=== PATIENT | male | born 1950 | race Caucasian/White ===

== ENCOUNTER 2025-08-16 05:38 | Day surgery (SDC) | payer MEDICARE, OTHER ==
[~2025-08-16] VITALS: Ht 177.8 cm; Wt 109.0 kg
[2025-08-16] VITALS (11 sets, daily range): BP systolic 119–170; BP diastolic 54–81
[~2025-08-16 05:38] MED LIST: AZULFIDINE500 MG PO; BYSTOLIC10 MG PO; CELEBREX200 MG PO; CENTRUM SILVER1 EAC9 PO; DOXAZOSIN MESYLA8 MG PO; FENOFIBRATE145 MG PO; FLOMAX0.4 MG PO; LACTATED RINGER'S 1,000 ML IV SCH; OLMESARTAN-HCT1 EAC1 PO; PRAVASTATIN SOD40 MG PO; TRIAMCINOLONE A15 G4 TOP; TURMERIC500 M3 PO; TYLENOL325 MG PO; VERAPAMIL ER240 M1 PO; VITAMIN B COMP1 EACH PO; VITAMIN D310 MC4 PO
[2025-08-16] MEDS ORDERED: LIDOCAINE HCL 2% 5 ML SDV ONE (06:21)
[2025-08-16] MEDS ORDERED: BUPIVACAINE 0.75% IN DEXTROSE 2 ML AMP ONE (06:22)
[2025-08-16 06:30] LABS: BASOPHILS 0.6 % (0.2-1.2); EOSINOPHILS 2.7 % (0.8-7.0); LYMPHOCYTES 28.5 % (21.8-53.1); MCH 33.2 PG (25.7-32.2); MCHC 34.9 g/dL (32.3-36.5); MCV 95.0 fL (79.0-92.2); MONOCYTES 11.1 % (5.3-12.2); NEUTROPHILS 56.9 % (34.0-67.9); RBC 3.98 M/uL (4.63-6.08)
[2025-08-16] MEDS ORDERED: SEVOFLURANE 250 ML BTL ONE (06:33)
[2025-08-16] MEDS ORDERED: fentaNYL citrate 100 MCG/2 ML VIAL ONE (06:54)
[2025-08-16] MEDS ORDERED: TRANEXAMIC ACID IN NACL,ISO-OS 1,000 MG/100 ML PIGGYBACK IV SCH ×2 (07:00→11:44)
[2025-08-16] MEDS ORDERED: PANTOPRAZOLE SODIUM 40 MG TABEC PO SCH (07:00)
[2025-08-16] MEDS ORDERED: LIDOCAINE HCL 1% 5 ML SDV INJ ONE (07:00)
[2025-08-16] MEDS ORDERED: IBLOOD GLUCOSE TEST STRIP 1 EA TEST VI PRN ×2 (07:00→08:15)
[2025-08-16] MEDS ORDERED: OXYCODONE HCL 5 MG TAB PO SCH (07:00)
[2025-08-16] MEDS ORDERED: INTRA-ARTICULAR ANALGESIC INJECTION XX SCH (07:00)
[2025-08-16] MEDS ORDERED: CEFAZOLIN SODIUM 2 GM in SODIUM CHLORIDE 0.9% 100 ML IV SCH ×2 (07:00→15:00)
[2025-08-16] MEDS ORDERED: GABAPENTIN 600 MG TAB PO SCH (07:00)
[2025-08-16] MEDS ORDERED: ACETAMINOPHEN 1,000 MG/100 ML VIAL ONE (07:22)
[2025-08-16] MEDS ORDERED: PHENYLEPHRINE HCL IN 0.9% NACL 1 MG/10 ML SYR ONE ×2 (07:50→08:33)
[2025-08-16] MEDS ORDERED: HYDROmorphone HCL 1 MG/ML SYR IV PRN (08:15)
[2025-08-16] MEDS ORDERED: NALOXONE HCL 0.4 MG SYR IV PRN (08:15)
[2025-08-16] MEDS ORDERED: fentaNYL citrate 50 MCG/ML SDV IV PRN (08:15)
[2025-08-16] MEDS ORDERED: OXYCODONE HCL 5 MG TAB PO PRN (08:45)
[2025-08-16] MEDS ORDERED: KETOROLAC TROMETHAMINE 30 MG/ML VIAL IV PRN (08:45)
[2025-08-16] MEDS ORDERED: OXYCODONE HCL5 M1 PO (08:53)
[2025-08-16] MEDS ORDERED: CEFUROXIME250 MG PO (08:53)
[2025-08-16] MEDS ORDERED: XARELTO10 MG PO (08:53)
[2025-08-16] MEDS ORDERED: SENNA LAX8.6 MG PO (08:54)
[2025-08-16] MEDS ORDERED: GABAPENTIN300 MG PO (08:54)
[2025-08-16] MEDS ORDERED: TRANEXAMIC ACID 650 MG TABLET PO SCH (09:00)
--- NOTE | 2025-08-16 09:02 | NUR ---
08/16/25 0902 Luz Maria Trejo 0856: VA ATTIVES TO PACU AWAK, BUT DROWSY. REPROT RECEIVED FROM DIRECTOR OF COMMUNICATIONS AND BELT NOTCHER. RUY 0858: IMAGMYRANDAG CALLED.
--- NOTE | 2025-08-16 09:37 | NUR ---
PT ARRIVES TO FROM PACU VIA STRETCHER. PT IS A&O AND ASKING APPROPRIATE QUESTIONS AT THIS TIME. PT ON RA W/O2 >90%, RESPIRATIONS EVEN AND UNLABORED, NO SIGNS OF DISTRESS. REPORT RECEIVED FROM KETAN CARRILLO, DRESSINGS VISUALIZED. CRYO CUFF, BIMAL HOSE, HEEL PROTECTORS, FOOT PUMPS IN PLACE. PT ABLE TO WIGGLE LFT FOOT AT THIS TIME, UNABLE TO MOVE RIGHT. ICE WATER AND APPLESAUCE PROVIDED. PT REPORTS NO FURTHER NEEDS OR QUESTIONS AT THIS TIME. CALL LIGHT WITHIN REACH. PT AT BEDSIDE. WARM BLANKETS PROVIDED.
--- NOTE | 2025-08-16 10:49 | NUR ---
IN PT ROOM FOR ASSESSMENT AND VS. PT CONTINUES TO REPORT NO PAIN OR NAUSEA. PT RESTING W/EYES CLOSED, SLIGHT AUDIBLE SNORE, O2 >90% VIA RA, RESPIRATIONS EVEN AND UNLABORED, NO SIGNS OF DISTRESS. PT REMAINS AT BEDSIDE. NO ACUTE CHANGES FROM PREVIOUS SURGICAL SITE ASSESSMENT. PT ABLE TO SLIGHTLY MOVE RT FOOT MORE. CALL LIGHT WITHIN REACH. PT AND PT STATE NO FURTHER NEEDS OR QUESTIONS AT THIS TIME.
--- NOTE | 2025-08-16 11:50 | NUR ---
IN PT ROOM FOR VS AND ASSESSMENT. PT RESTING W/EYES CLOSED, AWAKENS EASILY W/VERBAL STIMULI. PT REPORTS NO PAIN OR NAUSEA AT THIS TIME. RESPIRATIONS EVEN AND UNLABORED, NO SIGNS OF DISTRESS. PT >90% VIA RA WHEN RESTING, W/SLIGHT AUDIBLE SNORE. NO ACUTE CHANGES FROM PREVIOUS SURGICAL SITE ASSESSMENT. PT ABLE TO MOVE BOTH FEET W/OUT DIFFICULTY AND SENSATION PRESENT TO TOES. SLIGHT NUMBNESS REMAINS TO GROIN REGION AND TO RT FOOT PER PT. PT ENCOURAGED TO PERFORM FOOT AND GLUTE EXERCISES, CORRECT DEMONSTRATION, PT STATES VERBAL UNDERSTANDING. PT NOT PRESENT AT BEDSIDE AT THIS TIME. CALL LIGHT WITHIN REACH. LUNCH ORDER TAKEN, PT STATES NOT HUNGRY AT THIS TIME. PT STATES NO FURTHER NEEDS OR QUESTIONS AT THIS TIME.
--- NOTE | 2025-08-16 12:05 | NUR ---
IN PT ROOM D/T PT REPORTING NAUSEA POST TXA ADMIN. PT STATES REMAINS SHAKEY AND COLD, TEMP WNL. WARM BLANKETS AND MARIA INES HUGGER IN PLACE. VO FOR NAUSEA MED RECEIVED BY BOB PRICE, GIVEN (SEE EMAR). PT STATES NAUSEA SUBSIDING. PT STATES IN A FEW MINUTES WOULD LIKE TO SIT UP AT BEDSIDE BECAUSE HE HAS CHRONIC BACK PAIN AND IT IS BECOMING PAINFUL.
--- NOTE | 2025-08-16 12:30 | NUR ---
PT SITS AT EDGE OF BED, STRENGTH INTACT. PT REPORTS SLIGHT PAIN INCREASE W/MOVEMENT TO SITTING POSITION. PT STATES SITTING ALLEVIATES PAIN. PT SPINAL FULLY RESOLVED AND CAN FEEL SENSATION OF FEET TOUCHING FLOOR. PT RETURNS BACK TO SUPINE POSITION AFTER 5 MINUTES OF SITTING AT BEDSIDE. PT STATES HE WOULD LIKE TO LAY SUPINE FOR A LITTLE BIT. PT BECOMES CHILLED AND WARM BLANKETS/MARIA INES HUGGER PROVIDED. CALL LIGHT WITHIN REACH.
--- NOTE | 2025-08-16 13:20 | NUR ---
IN PT ROOM FOR PAIN AND NAUSEA ASSESSMENT. PT TOLERATING SMALL BITES OF TURKEY AND CHEESE WITHOUT DIFFICULTY. PT HAS ONLY CONSUMENED HALF A SLICE OF TURKEY, HALF A SLICE OF CHEESE, AND A SALTINE CRACKER. PT ENCOURAGED TO CONSUME ORALS, PT STATES VERBAL UNDERSTANDING. PT STATES NO URGE TO URINE VOID AT THIS TIME. PT REMAINS AT BEDSIDE. PT SITTING UP IN BED AND SHAKING HAS REDUCED. CALL LIGHT WITHIN REACH.
--- NOTE | 2025-08-16 13:30 | NUR ---
FARIDEH Lares/PHYSICAL THERAPY IN ROOM AT THIS TIME.
--- NOTE | 2025-08-16 14:10 | NUR ---
PT BACK TO ROOM AND LAYING IN BED. PER PHYSICAL THERAPY, PT REPORTS PT EXPERIENCING SOME DIZZINESS DURING SESSION, BUT GAIT REMAINS STEADY. PT HAS PASSED PHYSICAL THERAPY. PT ENCOURAGED TO EAT ORALS D/T LIMITED INTAKE TODAY OF FOOD. PT ATTEMPTING TO EAT SMALL BITES OF TURKEY AND CHEESE FROM UNFINISHED LUNCH. PT WAS UNABLE TO URINATE DURING PHYSICAL THERAPY AND STATES NUMBNESS REMAINS IN GROIN REGION. THIS RN TO BLADDER SCAN PT WHEN PT DONE EATING, PT AND PT AGREEABLE TO PLAN OF CARE AT THIS TIME. CALL LIGHT WITHIN REACH.
--- NOTE | 2025-08-16 14:40 | NUR ---
PT RESTING W/EYES CLOSED AND AUDIBLE SNORE. PT AWAKENS TO VERBAL STIMULI FOR ASSESSMENT AND VS. NO ACUTE CHANGES TO PREVIOUS ASSESSMENT. PT STATES HE IS STILL UNABLE TO FEEL GROIN REGION AND STATES NO URGE TO URINE VOID. BLADDER SCAN VOLUME BETWEEN 600-700. PT REPORTS NO PAIN W/PALPATION AND BLADDER IS NOT PALPABLE AT THIS TIME. PT REMAINS AT BEDSIDE. CALL LIGHT WITHIN REACH. PT EASILY GOES BACK TO SLEEP, EYES CLOSED, RESPIRATIONS EVEN AND UNLABORED.
[2025-08-16] MEDS ORDERED: GABAPENTIN 300 MG CAP PO SCH (15:00)
--- NOTE | 2025-08-16 15:00 | NUR ---
PT TO MS RM112 VIA STRETCHER BY THIS RN. PT SLIDES TO BED W/NO PAIN OR DIFFICULTY REPORTED. DRESSING VISUALIZED BY JAMAR CARRILLO, REMAINS C/D/I. VS TAKEN. CRYO CUFF, BIMAL HOSE, HEEL PROTECTORS, FOOT PUMPS IN PLACE. PT FREQUENTLY RESTING W/EYES CLOSED, RESPIRATIONS EVEN AND UNLABORED. PT EASILY AWAKENS W/VERBAL STIMULI. REPORT PROVIDED TO JAMAR CARRILLO W/NO FAMILY PRESENT AT BEDSIDE. ALL BELONGINGS IN PT POSSESSION. PT AND RN STATE NO FURTHER QUESTIONS OR NEEDS AT THIS TIME. CALL LIGHT WITHIN REACH. BED IN LOWEST POSITION. DINNER ARRIVED AND PT ENCOURAGED TO EAT D/T LACK OF FOOD INTAKE TODAY, PT STATES VERBAL UNDERSTANDING.
--- NOTE | 2025-08-16 15:10 | NUR ---
CONRADO PADILLA UPDATED ON PT INABILITY TO VOID AND BS VOLUME BETWEEN 600-700 ML. VO RECEIVED FOR 0.8 MG OF FLOMAX AND STRAIGHT CATH. PT TOLERATES STRAIGHT CATH W/OUT REPORTED PAIN. THIS RN MAINTAINS STERILITY. SMALL AMOUNT OF BLEEDING UPON INTO BLADDER, AND REMOVAL OF CATHETER FROM BLADDER. PT REMAINS REPORTING NO PAIN AT THIS TIME. 600 ML OF URINE DRAINED, MURRAY CARE PERFORMED W/BABY WIPES. PT BACK IN ROOM, CALL LIGHT WITHIN REACH.
[2025-08-16] MEDS ORDERED: LIDOCAINE 2% VISCOUS 6 ML SYR TOP ONE (15:15)
[2025-08-16] MEDS ORDERED: TAMSULOSIN HCL 0.4 MG CAP PO ONE (15:15)
--- NOTE | 2025-08-16 15:42 | NUR ---
PT AND PT STATE CONCERNS OF PT DRIVING HOME IN DARK AND NEEDS TO BE ON ROAD BY 1630. VO FROM CONRADO PADILLA FOR EXTENDED RECOVERY ON MS, PT AND PT UPDATED AND AGREEABLE TO PLAN OF CARE. CHICKEN BROTH PROVIDED AT PT REQUEST. ASSORTER LAUNDRY CALLED FOR MS ROOM 112. ADMISSION ORDERS PLACED.
--- NOTE | 2025-08-16 16:50 | NUR ---
Pt arrived to room via PACU stretcher, transported here by SQL APPLICATION DEVELOPERLORENA Lopez. Pt is A&O, able to scoot transfer from stretcher to bed. Cryo cuff applied, Denis hose on, foot pumps on, heel rolls under heels. Dressing to left hip is CDI, 2 RN skin assessment done with LORENA Lopez. IV site is patent, good blood return, flushes well with 10ml NS, locked. Dinner tray at bedside. Pt denies needs at this time. White board updated. Pt oriented to room and call light. Assessment completed.
--- NOTE | 2025-08-16 19:15 | NUR ---
REPORT RECEIVED FROM JAMAR CARRILLO. pt RESTING IN THE BED. pt DESATTING DOWN TO 85-87% ON RA. THIS RN LACED pt ON 1LNC FOR THE NIGHT. pt DENIES ANY OTHER NEEDS AT THIS TIME. CALL LIGHT WITHIN REACH.
[2025-08-16] MEDS ORDERED: SENNOSIDES 1 TAB PO SCH (21:00)
--- NOTE | 2025-08-16 21:45 | NUR ---
ASSESSMENT AND VITAL SIGNS DONE. pt SATTING AT 95% ON 1L. DREESSING ON LEFT HIP IS CDI. CRYO CUFF FILLED WITH ICE. SCD'S ON. BIMAL HOSE ON. pt ENCOURAGED TO PEE AND GIVEN URINAL. pt DENIES ANY OTHER NEEDS AT THIS TIME. CALL LIGHT WITHIN REACH.
--- NOTE | 2025-08-16 23:55 | NUR ---
pt IV ABX INFUSING PER ORDER AND FINISHED. IV ASSESSED, WNL. pt USED URINAL. pt DENIES ANY OTHER NEEDS AT THIS TIME. CALL LIGHT WITHIN REACH.
[2025-08-17 01:31] VITALS: BP 165/71
--- NOTE | 2025-08-17 02:01 | NUR ---
THIS RN IN TO CHECK ON pt. pt C/O 05/23 PAIN. PRN PAIN MEDS ADMINISTERED. DRESSING ASSESSED, WNL. pt DENIES ANY OTHER NEEDS AT THIS TIME. CALL LIGHT WITHIN REACH. CRYO CUFF FILLED WITH ICE. SCD'S ON. VITAL SIGNS AND I&O'S DONE. BIMAL HOSE ON. pt DENIES ANY OTHER NEEDS AT THIS TIME. CALL LIGHT WITHIN REACH.
--- NOTE | 2025-08-17 03:32 | NUR ---
pt RESTING IN THE BED WITH EYES CLOSED. RR EVEN AND UNLABORED. CALL LIGHT WITHIN REACH.
[2025-08-17 05:51] VITALS: BP 159/87
--- NOTE | 2025-08-17 06:13 | NUR ---
VITAL SIGNS DONE. pt C/O 05/23 PAIN. PRN PAIN MEDS ADMINISTERED. CRYO CUFF REFRESHED. SCD'S ON. BIMAL HOSE ON. pt DENIES ANY OTHER NEEDS AT THIS TIME. CALL LIGHT WITHIN REACH.
--- NOTE | 2025-08-17 07:02 | OR ---
[facility] [address], [place] [address] Signed DATE OF OPERATION: 08/16/2025 SURGEON: Oneyda Bauman MD PREOPERATIVE DIAGNOSIS: Left hip degenerative joint disease. POSTOPERATIVE DIAGNOSIS: Left hip degenerative joint disease. PROCEDURE PERFORMED: Left total hip arthroplasty with Min. VOCATIONAL CASE MANAGER: Lianet Stewart PA-C. ANESTHESIA: Spinal. BLOOD LOSS: 163 mL. IMPLANTS: [place] Insignia size 8 56 mm cup with two 6.5 screws and a -5 head. BRIEF HISTORY: Thomas is a 74-year-old gentleman with progressive worsening of osteoarthritis in the left hip. He had undergone right total hip arthroplasty in the past. Risks and benefits of operative treatment were discussed with him and he elected to proceed. Once consent was obtained, he was taken to the operating room. After adequate anesthesia, he was placed on the operating table in the left lateral decubitus position. All downside pressure points were well padded. Axillary roll was placed. The leg was then prepped and draped in a standard sterile fashion from the ribcage to the toes. The two stab incisions were made over the iliac crest three fingerbreadths posterior to the ASIS and two Schanz screws were placed along with the computer navigation array. The hip was approached through standard anterolateral incision. This was carried through skin and subcutaneous tissue and directly down onto the IT band. The IT band was split longitudinally. The gluteus medius was noted to be torn from the trochanter over its anterior 3rd already. This was tagged and marked. The vastus lateralis was then elevated from the tip of the trochanter distally along the anterior margin of the femur around to the level of the Electronically Signed By: ONEYDA BAUMAN MD 08/17/25 0702 PATIENT NAME: THOMAS ROJAS OPERATIVE REPORT DATE OF : 52 REPORT #: [id number] PHYSICIAN: ONEYDA BAUMAN MD PCP: KATI GUO MD REPORT IS CONFIDENTIAL AND NOT TO BE RELEASED WITHOUT AUTHORIZATION [facility] [address], [place] [address] Signed lesser trochanter. The capsule and minimus were split all the way to the acetabular rim and peeled off the anterior neck. The leg was then registered with the computer. The hip was dislocated. Femoral neck cut made 8 mm above the lesser trochanter. The femoral head was passed off the table. The periacetabular soft tissue was removed and the acetabulum was registered with the computer. Once this was accomplished, we brought the robot in and we were unable to get the robot to register within the 0.5 mm. Multiple attempts were made at this and it was decided to abandon that. The acetabulum was then reamed with a 54, then a 56 reamer. The cup was impacted in 18 degrees of anteversion and 47 degrees of abduction. The two screws were placed in the posterior superior quadrant. The acetabular liner was then impacted until it was well locked. Attention was then turned to proximal femur, which was opened using rex cutter, followed by the Cecile awviviana. The femur was broached up to an 8. This was left in position with standard offset head. -5 head was then placed and the hip was reduced. Leg lengths found to be good. He had excellent range of motion and good stability. Negative Shuck test. The hip was dislocated and the trials were removed. The final stem was impacted until it was well-seated. The trunnion was cleaned and the femoral head was impacted. The hip was again reduced, taken through range of motion and found to be good. The wound was then copiously irrigated with one bottle of Surgiphor followed by normal saline. The hip capsule was closed using #2 FiberWire. The vastus, where he had been torn was repaired back to bone through separate bone holes. Two FiberTape sutures were used for this. The remainder of the vastus layer was closed using #2 Stratafix. The IT band layer was closed using #2 Stratafix, subcutaneous tissue with 0 Stratafix and the skin with 3-0. The wound was sealed with LiquiBand and Steri-Strips and dressed with an Acticoat-7 dressing. He tolerated the procedure well. All sponge, needle, and instrument counts were correct. Oneyda Bauman MD BA/MODL /[id number] Copies: ~ Electronically Signed By: ONEYDA BAUMAN MD 08/17/25 0702 PATIENT NAME: THOMAS ROJAS OPERATIVE REPORT DATE OF : 52 REPORT #: [id number] PHYSICIAN: ONEYDA BAUMAN MD PCP: KATI GUO MD REPORT IS CONFIDENTIAL AND NOT TO BE RELEASED WITHOUT AUTHORIZATION
--- NOTE | 2025-08-17 07:25 | NUR ---
VERBAL REPORT RECIEVED FROM LORENA REID. PT RESTS IN BED AWAKE AND ALERT, VISTOR X1 AT BEDSIDE. NO REQUESTS AT THIS TIME.
[2025-08-17] MEDS ORDERED: EPIN0.3P IM (07:43)
--- NOTE | 2025-08-17 07:43 | NUR ---
MED REC COMPLETE
--- NOTE | 2025-08-17 08:18 | NUR ---
PT RESTS IN BED, AWAKE AND ALERT, VISITOR X1 AT BEDSIDE. CRYOCUFF IN PLACE TO LEFT HIP, HEEL ELEVATED, SCD TO LEFT FOOT. CPOX IN PLACE. PT EATS BREAKFAST TOLERATES THIS WELL. VOIDS CLEAR YELLOW URINE IN URINAL.
--- NOTE | 2025-08-17 08:55 | NUR ---
DISCUSSED DISCHARGE INSTRUCTIONS WITH PATIENT AND SPOUSE, BOTH VERBALIZE UNDERSTANDING. SPOUSE RETURN DEMONSTRATES USE OF CRYOCUFF. IV REMOVED, TIP INTACT, GAUZE AND COBAN DRESSING APPLIED TO SITE, PT TOLERATED WELL. VSS. PT DRESSES WITH ASSIST FROM SPOUSE. PT LEAVES UNIT WITH BELONGINGS VIA WHEELCHAIR, ESCORTED TO PRIVATE CAR DRIVEN BY SPOUSE.
== END 2025-08-17 08:55 | disposition home or self-care (01) ==
LOC: DS 05:38 → MS 16:40 → DS 08-17 08:55
PROVIDERS: Nurse Anesthetist, Certified Registered; ATTEND Specialist
PROC: 0SRB0JZ Replacement of Left Hip Joint with Synthetic Substitute, Open Approach (ICD-10-PCS; principal; 2025-08-16 07:00)
DX: M16.12 Unilateral primary osteoarthritis, left hip (principal); I10 Essential (primary) hypertension; E78.00 Pure hypercholesterolemia, unspecified; Z79.899 Other long term (current) drug therapy
CPT/HCPCS: 0055T; 27130; 01214; 36415; 72170; 85025; 96365; 97110; 97161; 97530; A9270; C1713; C1776; J0131; J0165; J0360; J0688; J1790; J2003; J2405; J2704; J3010; J7121